=== PATIENT | female | born 1970 | race African-American/Black ===

== ENCOUNTER 2016-08-01 06:26 | Emergency (ER) | payer OTHER, BC ==
[~2016-08-01] VITALS: Ht 175.3 cm; Wt 93.4 kg
[~2016-08-01 06:26] MED LIST: AMLO2.5T PO; AZEL205.2 NS; CITA10TA4 PO; CYCL5TAB PO; DICL100G7 TP; DICY10CA3 PO; GABA-585 PO; HYDR-2666 PO; LAMO25TA13 PO; MELO-156 PO; MONT4TAB7 PO; NADO20TA PO; OMEP20TA PO; PRED20TA PO; TEMA30CA PO
[2016-08-01 06:50] VITALS: BP 137/84
--- NOTE | 2016-08-01 07:09 | PHYS DOC ---
Past Medical History Past Medical History: Bipolar, Hypertension, Other Additional Past Medical Histor: adhd Past Surgical History: Cholecystectomy, Hysterectomy Additional Past Surgical Histo: gastric bypass, nasal, carpal tunnel Alcohol Use: None Drug Use: None Adult General Chief Complaint Chief Complaint: LOWER EXT PAIN [facility] HPI Patient is a 46 year old female who presents with right ankle pain since yesterday afternoon. Pain is constant, worse with range of motion and walking, achy. She had her foot underneath a chair and then attempted to get up, thereby twisting her ankle. She is unable minimal weight on her ankle since that time. She has been able to limp. She scraped her medial ankle on the chair leg, with no significant bleeding. She took extra strength Tylenol at home without relief of her symptoms. She denies numbness, tingling, weakness. Last tetanus vaccine over 10 years ago. Review of Systems Review of Systems Constitutional: Denies fever or chills [] Eyes: Denies change in visual acuity, redness, or eye pain [] HENT: Denies nasal congestion or sore throat [] Respiratory: Denies cough or shortness of breath [] Cardiovascular: No additional information not addressed in HPI [] GI: Denies abdominal pain, nausea, vomiting, bloody stools or diarrhea [] : Denies dysuria or hematuria [] Musculoskeletal: Denies back pain [] Integument: Denies rash or skin lesions [] Neurologic: Denies headache, focal weakness or sensory changes [] Endocrine: Denies polyuria or polydipsia [] Current Medications Current Medications Current Medications Medications (Trade) Dose Ordered Sig/Khadar Start Time Stop Time Status Last Admin Dose Admin Diphtheria/ Tetanus/Acell Pertussis (Boostrix) 0.5 ml ONCE ONCE 08/01/16 07:15 08/01/16 07:16 UNV Ibuprofen (Motrin) 600 mg 1X ONCE 08/01/16 07:15 08/01/16 07:16 UNV Allergies Allergies Allergies Coded Allergies Type Severity Reaction Last Updated Verified No Known Drug Allergies 11/09/15 No Physical Exam Physical Exam Constitutional: Well developed, well nourished, no acute distress, non-toxic appearance. [] HENT: Normocephalic, atraumatic, bilateral external ears normal, oropharynx moist, nose normal. [] Eyes: PERRLA, EOMI. [] Neck: Normal range of motion, supple. [] Cardiovascular: Extremities warm and well perfused, brisk cap refill [] Lungs & Thorax: Respirations even and unlabored [] Abdomen: soft, no tenderness. [] Skin: Warm, dry, no erythema, no rash. [] Back: Normal range of motion. [] Extremities: RLE No obvious deformity; Has ecchymosis along medial ankle with small central abrasion that is well appearing; Has tenderness along medial soft tissues with no palpable abnormality; Can flex/ex toes; Can dorsiflex/plantar flex ankle; No medial or lateral malleolar tenderness; No 5th metatarsal base tenderness; SILT daily/sa/sp/dp/tib distributions; good dp and pt pulses equal bilaterally Neurologic: Alert and oriented X 3, normal motor function, normal sensory function, no focal deficits noted. [] Psychologic: Affect normal, judgement normal, mood normal. [] Current Patient Data Vital Signs Vital Signs Date Time Temp Pulse Resp B/P Pulse Ox O2 Delivery O2 Flow Rate FiO2 08/01/16 06:50 98.6 83 16 137/84 97 Room Air 98.6 Course & Med Decision Making Course & Med Decision Making Imaging offered, but patient does not think that it is required. Discussed RICE. Will provide air case splint and crutches. Return precautions given. She understood and agrees plan. Jamal Disclaimer Jamal Disclaimer This electronic medical record was generated, in whole or in part, using a voice recognition dictation system. Departure Departure Impression: Primary Impression: Ankle pain, right Disposition: 01 HOME, SELF-CARE Condition: STABLE Referrals: HUONG MCMILLAN MD (PCP) Patient Instructions: Ankle Sprain, [id number] Additional Instructions: Take ibuprofen or Tylenol as needed for pain. Use ice on your ankle. Follow-up with your primary care doctor within one week. Return for any concerns. Problem Qualifiers Primary Impression: Ankle pain, right Chronicity: acute Qualified Code: M25.571 - Pain in right ankle and joints of right foot Lorrie POWER MD Aug 01, 2016 07:09
[2016-08-01] MEDS ORDERED: DIPHTH,PERTUSS(ACELL),TET TOX 0.5 ML DISP.SYRIN. VAX IM ONE (07:15)
[2016-08-01] MEDS ORDERED: IBUPROFEN 600 MG TABLET. PO ONE (07:15)
== END 2016-08-01 07:30 | disposition home or self-care (01) ==
LOC: ER 06:26
DX: M25.571 Pain in right ankle and joints of right foot (principal); F31.9 Bipolar disorder, unspecified; I10 Essential (primary) hypertension; F90.9 Attention-deficit hyperactivity disorder, unspecified type
CPT/HCPCS: 90471; 90715; 99283-25

== ENCOUNTER 2018-05-02 15:06 | Emergency (ER) | payer OTHER, BC ==
[~2018-05-02] VITALS: Ht 175.3 cm; Wt 90.7 kg
[~2018-05-02 15:06] MED LIST changes: -AMLO2.5T PO; +AMLO2.5T3 PO; +DICL100G18 TP; -DICL100G7 TP; -HYDR-2666 PO; +HYDR-2758 PO; -MELO-156 PO; +MELO7.5T29 PO; -OMEP20TA PO; +OMEP20TA8 PO
--- NOTE | 2018-05-02 15:34 | PHYS DOC ---
Past Medical History Past Medical History: Bipolar, Hypertension, Other Additional Past Medical Histor: adhd Past Surgical History: Cholecystectomy, Hysterectomy Additional Past Surgical Histo: gastric bypass, nasal, carpal tunnel Alcohol Use: None Drug Use: None Adult General Chief Complaint Chief Complaint: HYPERTENSION HPI HPI Patient is a 47 year old female with history of bipolar, hypertension, who presents today complaining of a 5 out of 10 frontal headache described as throbbing with high blood pressure and blurry vision that began yesterday. Patient states she is on losartan and amlodipine. She states she took both medications this morning. She states her blood pressures have been running high since yesterday and her PCP is aware. Patient denies this being the worst headache in her life. Denies any chest pain or shortness of breath. Denies anything exacerbating her headache she states she took [id number] headache medications with slight relief this morning Review of Systems Review of Systems Constitutional: Denies fever or chills [] Eyes: Denies change in visual acuity, redness, or eye pain [] HENT: Denies nasal congestion or sore throat [] Respiratory: Denies cough or shortness of breath [] Cardiovascular: Reports high blood pressure GI: Denies abdominal pain, nausea, vomiting, bloody stools or diarrhea [] : Denies dysuria or hematuria [] Musculoskeletal: Denies back pain or joint pain [] Integument: Denies rash or skin lesions [] Neurologic: Reports headache and blurry vision, denies focal weakness or sensory changes [] All other systems were reviewed and found to be within normal limits, except as documented in this note. Current Medications Current Medications Current Medications Medications (Trade) Dose Ordered Sig/Khadar Start Time Stop Time Status Last Admin Dose Admin Acetaminophen (Tylenol) 1,000 mg 1X ONCE 05/02/18 16:00 05/02/18 16:01 DC 05/02/18 16:06 1,000 MG Clonidine HCl (Catapres) 0.1 mg 1X ONCE 05/02/18 16:00 05/02/18 16:01 DC 05/02/18 16:07 0.1 MG Allergies Allergies Allergies Coded Allergies Type Severity Reaction Last Updated Verified No Known Drug Allergies 11/09/15 No Physical Exam Physical Exam Constitutional: Well developed, well nourished, no acute distress, non-toxic appearance. [] HENT: Normocephalic, atraumatic, bilateral external ears normal, oropharynx moist, no oral exudates, nose normal. [] Eyes: PERRLA, EOMI, conjunctiva normal, no discharge. [] Neck: Normal range of motion, no tenderness, supple, no stridor. [] Cardiovascular:Heart rate regular rhythm, no murmur [] Lungs & Thorax: Bilateral breath sounds clear to auscultation [] Abdomen: Bowel sounds normal, soft, no tenderness, no masses, no pulsatile masses. [] Skin: Warm, dry, no erythema, no rash. [] Back: No tenderness, no CVA tenderness. [] Extremities: No tenderness, no cyanosis, no clubbing, ROM intact, no edema. [] Neurologic: Alert and oriented X 3, normal motor function, normal sensory function, no focal deficits noted. Cranial nerves II through XII intact Psychologic: Affect normal, judgement normal, mood normal. [] Current Patient Data Vital Signs Vital Signs Date Time Temp Pulse Resp B/P (MAP) Pulse Ox O2 Delivery O2 Flow Rate FiO2 05/02/18 16:07 94 157/90 05/02/18 15:55 98.6 16 100 Room Air 98.6 Lab Values Laboratory Tests Test 05/02/18 15:30 05/02/18 16:00 White Blood Count 10.3 x10^3/uL (4.0-11.0) Red Blood Count 4.66 x10^6/uL (3.50-5.40) Hemoglobin 14.7 g/dL (12.0-15.5) Hematocrit 43.8 % (36.0-47.0) Mean Corpuscular Volume 94 fL (79-100) Mean Corpuscular Hemoglobin 32 pg (25-35) Mean Corpuscular Hemoglobin Concent 34 g/dL (31-37) Red Cell Distribution Width 13.1 % (11.5-14.5) Platelet Count 293 x10^3/uL (140-400) Neutrophils (%) (Auto) 51 % (31-73) Lymphocytes (%) (Auto) 39 % (24-48) Monocytes (%) (Auto) 6 % (0-9) Eosinophils (%) (Auto) 4 % (0-3) H Basophils (%) (Auto) 1 % (0-3) Neutrophils # (Auto) 5.3 x10^3uL (1.8-7.7) Lymphocytes # (Auto) 4.0 x10^3/uL (1.0-4.8) Monocytes # (Auto) 0.6 x10^3/uL (0.0-1.1) Eosinophils # (Auto) 0.4 x10^3/uL (0.0-0.7) Basophils # (Auto) 0.1 x10^3/uL (0.0-0.2) Sodium Level 140 mmol/L (136-145) Potassium Level 3.5 mmol/L (3.5-5.1) Chloride Level 103 mmol/L (98-107) Carbon Dioxide Level 27 mmol/L (21-32) Anion Gap 10 (6-14) Blood Urea Nitrogen 10 mg/dL (7-20) Creatinine 1.1 mg/dL (0.6-1.0) H Estimated GFR (Cockcroft-Gault) 64.7 Glucose Level 158 mg/dL (70-99) H Calcium Level 9.2 mg/dL (8.5-10.1) Troponin I Quantitative < 0.017 ng/mL (0.000-0.055) Laboratory Tests 05/02/18 15:30 Laboratory Tests 05/02/18 16:00 EKG EKG 15:[address] Alvarez sinus rhythm HR 97 no STEMI Radiology/Procedures Radiology/Procedures []PROCEDURE: PORTABLE CHEST 1V AP chest. HISTORY: Hypertension, headache, blurred vision AP view was taken of the chest. Lungs are clear. Heart is normal in size without heart failure. There is no effusion. IMPRESSION: 1. No acute chest disease. Electronically signed by: Vijay Preciado MD (05/02/2018 3:50 PM) [facility] DICTATED and SIGNED BY: VIJAY PRECIADO MD DATE: 05/02/18 4126 PROCEDURE: CT HEAD WO CONTRAST CT brain without contrast. HISTORY: Headache, blurred vision, hypertension CT scan of brain was done without contrast. There is complete opacification of the left frontal sinus with mucosal thickening and evidence of prior surgery in the left ethmoid sinuses. There is no intracranial hemorrhage or subdural hematoma. Ventricles are normal in size. There is no mass or shift of the midline. An acute CVA is not identified. IMPRESSION: 1. Left ethmoid and frontal sinusitis. 2. No intracranial hemorrhage or mass or acute finding noted. PQRS Compliance Statement: One or more of the following individualized dose reduction techniques were utilized for this examination: 1. Automated exposure control 2. Adjustment of the mA and/or kV according to patient size 3. Use of iterative reconstruction technique Electronically signed by: Vijay Preciado MD (05/02/2018 3:47 PM) [facility] DICTATED and SIGNED BY: VIJAY PRECIADO MD DATE: 05/02/18 154 Course & Med Decision Making Course & Med Decision Making Pertinent Labs and Imaging studies reviewed. (See chart for details) This is a 47-year-old female patient with history of hypertension presenting today with a headache, high blood pressure and blurry vision since yesterday. Palpation arrival to the ED is 158/110. Patient was given 0.1 mg of clonidine, blood pressure is coming down, currently 157/90. Labs are negative for any acute findings including troponin. EKG is negative for any acute findings, chest x-ray is negative for any acute findings, CT of the head is negative for any acute findings, noted for sinusitis. Patient will be discharged with Augmentin. Instructed to continue taking her blood pressure medicines and follow-up with her doctor in the next couple days. Tylenol or Motrin recommended for pain. Provided return precautions and discharged in stable condition. Dragon Disclaimer Dragon Disclaimer This electronic medical record was generated, in whole or in part, using a voice recognition dictation system. Departure Departure Impression: Primary Impression: Hypertension Additional Impressions: Sinusitis, acute Headache Disposition: 01 HOME, SELF-CARE Condition: STABLE Referrals: HUONG MCMILLAN MD (PCP) follow up in the course of this week Patient Instructions: Headache, FAQs, Hypertension, Sinusitis Additional Instructions: You were evaluated in the emergency room for her blood pressure. Continue taking your blood pressure medications. Your CT of the head showed you have a sinus infection. We put you on antibiotics, ensure you complete them. Take Tylenol/Motrin for pain. Follow-up with your doctor in the course of this week, come back to the ED at any point symptoms worsen. Scripts Amoxicillin/Potassium Clav (AMOX TR-K CLV 875-125 MG TAB) 1 Each Tablet 1 TAB PO BID, #20 TAB Prov: BENITOJANCHARLENE APRN 05/02/18 Problem Qualifiers Primary Impression: Hypertension Hypertension type: essential hypertension Qualified Codes: I10 - Essential ( primary) hypertension Additional Impressions: Sinusitis, acute Sinusitis location: frontal Recurrence: not specified as recurrent Qualified Codes: J01.10 - Acute frontal sinusitis, unspecified Headache Headache type: unspecified Headache chronicity pattern: unspecified pattern Intractability: not intractable Qualified Codes: R51 - Headache GRAZYNACHARLENE ALEXIS May 02, 2018 15:34
[2018-05-02 15:44] LABS: BASO # 0.1 x10^3/uL (0.0-0.2); BASO % 1 % (0-3); EOS # 0.4 x10^3/uL (0.0-0.7); EOS % 4 % (0-3); HEMATOCRIT 43.8 % (36.0-47.0); HEMOGLOBIN 14.7 g/dL (12.0-15.5); LYMPH % 39 % (24-48); MEAN CORPUSCULAR HEMOGLOBIN 32 pg (25-35); MEAN CORPUSCULAR HGB CONC 34 g/dL (31-37); MEAN CORPUSCULAR VOLUME 94 fL (79-100); MONO # 0.6 x10^3/uL (0.0-1.1); MONO % 6 % (0-9); NEUT # 5.3 x10^3uL (1.8-7.7); NEUT % 51 % (31-73); PLATELET COUNT 293 x10^3/uL (140-400); RED BLOOD COUNT 4.66 x10^6/uL (3.50-5.40); RED CELL DISTRIBUTION WIDTH 13.1 % (11.5-14.5); WHITE BLOOD COUNT 10.3 x10^3/uL (4.0-11.0)
--- NOTE | 2018-05-02 15:51 | RAD ---
CT brain without contrast. HISTORY: Headache, blurred vision, hypertension CT scan of brain was done without contrast. There is complete opacification of the left frontal sinus with mucosal thickening and evidence of prior surgery in the left ethmoid sinuses. There is no intracranial hemorrhage or subdural hematoma. Ventricles are normal in size. There is no mass or shift of the midline. An acute CVA is not identified. IMPRESSION: 1. Left ethmoid and frontal sinusitis. 2. No intracranial hemorrhage or mass or acute finding noted. PQRS Compliance Statement: One or more of the following individualized dose reduction techniques were utilized for this examination: 1. Automated exposure control 2. Adjustment of the mA and/or kV according to patient size 3. Use of iterative reconstruction technique Electronically signed by: Vijay Zhang MD (05/02/2018 3:47 PM) [facility]
--- NOTE | 2018-05-02 15:53 | RAD ---
AP chest. HISTORY: Hypertension, headache, blurred vision AP view was taken of the chest. Lungs are clear. Heart is normal in size without heart failure. There is no effusion. IMPRESSION: 1. No acute chest disease. Electronically signed by: Vijay Zhang MD (05/02/2018 3:50 PM) [facility]
[2018-05-02] MEDS ORDERED: ACETAMINOPHEN 500 MG TABLET PO ONE (16:00)
[2018-05-02] MEDS ORDERED: cloNIDine HCL 0.1 MG TABLET PO ONE (16:00)
[2018-05-02 16:18] LABS: CALCIUM 9.2 mg/dL (8.5-10.1); CREATININE 1.1 mg/dL (0.6-1.0); GFR 64.7; POTASSIUM 3.5 mmol/L (3.5-5.1)
[2018-05-02] MEDS ORDERED: AMOX1TAB11 PO (16:45)
[2018-05-02 17:00] VITALS: BP 156/92
--- NOTE | 2018-05-02 17:39 | EKG ---
[facility] [address] [place] [address] Test Date: 2018-05-02 Test Time: 15:50:05 Pat Name: TAVIA MARSHALL Department: Room: Gender: F Commissioned Security Officer: : 1970 Requested By: CHARLENE GERONIMO Order Number: [id number] Reading MD: Augusto Chavez MD Measurements Intervals [place] Rate: 96 P: 47 OK: 136 QRS: 4 QRSD: 80 T: 22 QT: 332 QTc: 425 Interpretive Statements SINUS RHYTHM Electronically Signed On 05-03-2018 15:22:24 HEALTH CARE LEGAL ASSISTANT by Augusto Chavez MD
== END 2018-05-02 17:00 | disposition home or self-care (01) ==
LOC: ER 15:06
DX: J01.10 Acute frontal sinusitis, unspecified (principal); I10 Essential (primary) hypertension; R51 Headache; F31.9 Bipolar disorder, unspecified; F90.9 Attention-deficit hyperactivity disorder, unspecified type
CPT/HCPCS: 36415; 70450; 71045; 80048; 84484; 85025; 93005; 99285-25

== ENCOUNTER → 2020-02-01 | Outpatient (CLI) | payer BC, OTHER ==
[~2020-02-01] MED LIST changes: -AMLO2.5T3 PO; +AMLO2.5T5 PO; +AMOX1TAB11 PO; -DICL100G18 TP; +DICL100G54 TP; -HYDR-2758 PO; +HYDR-2761 PO; +IOHEXOL 240 MG/ML 50ML VIAL. PO ONE; +IOHEXOL 300 MG/ML 100ML VIAL. IV ONE
--- NOTE | 2020-02-01 15:53 | KCIC ---
CT abdomen pelvis with contrast dated 02/01/2020. Comparison made to November 09, 2015. CLINICAL INDICATION: Lower abdominal pain cholecystectomy and hysterectomy. TECHNIQUE: Contiguous axial imaging the M pelvis performed after the administration of 100 cc Omnipaque 300. One or more of the following individualized dose reduction techniques were utilized for this examination: 1. Automated exposure control 2. Adjustment of the mA and/or kV according to patient size 3. Use of iterative reconstruction technique FINDINGS: Limited images of lung bases are clear. Heart size within normal limits. No pleural or pericardial effusion. Liver is of diffuse low density, compatible with fatty infiltration. No apparent mass. Biliary tree normal in caliber. Gallbladder surgically absent. Spleen is normal in size. Pancreas, adrenal glands and kidneys are unremarkable. No hydronephrosis. There is evidence of prior gastric bypass. The excluded portion of the stomach shows prominent mucosal enhancement or focal thickening, similar to prior study. GI tract otherwise normal in caliber and contour. No focal bowel wall thickening. No inflammatory stranding in the mesentery. Appendix normal in caliber. No ascites or lymphadenopathy. Abdominal aorta normal in caliber. Images of pelvis show nondistended urinary bladder. Uterus is surgically absent. No free fluid or pelvic lymphadenopathy. Bone windows show no acute findings. Mild multilevel spondylosis. IMPRESSION: 1. No acute abnormality of abdomen or pelvis. Normal appendix. 2. Evidence prior gastric bypass. The excluded portion of the stomach shows prominent mucosal enhancement and rugal fold thickening, similar to prior study. Consider chronic gastritis. 3. Status post cholecystectomy and hysterectomy. 4. Mild fatty infiltration of the liver. Electronically signed by: Kwabena España MD (02/01/2020 3:50 PM) [facility]
== END ==
LOC: KCIC CT 13:33
PROVIDERS: ATTEND Family Medicine
DX: K76.0 Fatty (change of) liver, not elsewhere classified (principal); K29.50 Unspecified chronic gastritis without bleeding; Z90.49 Acquired absence of other specified parts of digestive tract; Z90.710 Acquired absence of both cervix and uterus
CPT/HCPCS: 74177; 82565; Q9966; Q9967